=== PATIENT | male | born 1940 | race Caucasian/White ===

== ENCOUNTER 2016-08-01 08:05 | Day surgery (SDC) | payer OTHER ==
[~2016-08-01 08:05] MED LIST: Metoclopramide 10 MG/2 ML SDV IV PRN; Sodium Chloride 0.9% 1,000 ML IV SCH; Sodium Chloride 0.9% 10 ML Syringe FLUSH PRN
[2016-08-01] MEDS ORDERED: Propofol 200 MG/20 ML SDV ONE (10:00)
[2016-08-01 12:40] VITALS: BP 144/61
--- NOTE | 2016-08-01 19:04 | OR ---
DATE OF OPERATION: PREOPERATIVE DIAGNOSIS: Screening colonoscopy. POSTOPERATIVE DIAGNOSIS: Normal colonoscopy. OPERATION: Screening colonoscopy. COMPLICATIONS: None. DRAINS: None. SPECIMENS: None. ESTIMATED BLOOD LOSS: Zero. ANESTHESIA: General propofol anesthesia. INDICATION: Mr. King is a 76-year-old gentleman here for a screening colonoscopy. His previous was 10 years ago. He has no family history. The above-mentioned procedure was explained. The risks, benefits, complications were explained. The patient understood and agreed and was brought to the operating room. DESCRIPTION OF PROCEDURE: The patient was brought to the operating room, placed in a left lateral decubitus position on the operating room table. Satisfactory general propofol anesthesia was administered. We began by performing a rectal examination, which was within normal limits. We then placed the endoscope by finger introduction into the rectum and subsequently advanced this to the level of the cecum. I was able identify the cecum, but I could not enter into the cecum due to significant tortuosity and looping at about the sigmoid. Multiple maneuvers were tried including placing the patient on his back, left side down, right side down, and counter pressure. The ileocecal valve was identified. The survey of the cecum could not be seen; however, the cecal strap was identified. We then evaluated the colon on withdrawal this revealed no significant abnormalities. The retroflexion was performed, which revealed no significant findings either. The colon was decompressed and the scope withdrawn. I recommend CT scan to evaluate the right lower quadrant pain as well as the remainder of the cecum. This was explained to the patient. The patient was awoken in the OR and taken to the PACU for recovery. There were no complications. Instrument count was correct. SANGEETA /[id number]
== END 2016-08-01 12:41 | disposition home or self-care (01) ==
LOC: LB.SDS 08:05
PROVIDERS: ATTEND Surgery
DX: Z12.11 Encounter for screening for malignant neoplasm of colon (principal); Z79.899 Other long term (current) drug therapy
CPT/HCPCS: 45378; J2704; J7040

== ENCOUNTER 2019-01-04 09:35 | Emergency (ER) | payer OTHER, MEDICARE ==
[2019-01-04] MEDS ORDERED: Erythromycin Base 0.5% Ophth Oint 3.5 GM Tube ONE (09:45)
[2019-01-04 09:53] VITALS: BP 177/62; PULSE 61
[2019-01-04] MEDS ORDERED: Gentamicin 0.3% Ophth Soln 5 ML Bottle ONE (09:57)
--- NOTE | 2019-01-04 10:19 | EDM.PDOC ---
ED HPI GENERAL MEDICAL PROBLEM - General Chief Complaint: ENT Problem Stated Complaint: FB IN EYE Time Seen by Provider: 01/04/19 09:45 Source of Information: Reports: Patient, Family History Limitations: Reports: No Limitations - History of Present Illness INITIAL COMMENTS - FREE TEXT/NARRATIVE: This patient presents to the ED with a foreign body in his eye. He believes that he has a wood chip/sliver there as he was cutting wood last evening. He felt something go in his eye and then thought it was out. When he woke this morning, he felt that something was in his left eye. He flushed it and tried eye drops and believes there is still something under his left eyelid. He denies other concerns or complaints. 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 below) (eye drops, flushed with water) left eye Pain Score (Numeric/FACES): 3 - Related Data Allergies Allergy/AdvReac Type Severity Reaction Status Date / Time No Known Allergies Allergy Verified 01/04/19 09:54 Home Meds: Home Meds Aspirin [Tonya Chewable] 81 mg PO DAILY 03/04/13 [History] Simvastatin [Zocor] 40 mg PO BEDTIME 03/04/13 [History] Vit D3/Folic Acid/B2/B6/B12 [Folgard Tablet] 1 cap PO DAILY 03/04/13 [History] Past Medical History Gastrointestinal History: Reports: Other (See Below) Other Gastrointestinal History: R GROIN HERNIA REPAIR 2014 Social & Family History - Family History Family Medical History: Noncontributory - Caffeine Use Caffeine Use: Reports: Coffee Caffeine Use Comment: 1-2 CUPS A DAY ED ROS ENT - Review of Systems Review Of Systems: See Below Constitutional: Reports: No Symptoms HEENT: Reports: Eye Pain Respiratory: Reports: No Symptoms Cardiovascular: Reports: No Symptoms Endocrine: Reports: No Symptoms GI/Abdominal: Reports: No Symptoms Musculoskeletal: Reports: No Symptoms Skin: Reports: No Symptoms Neurological: Reports: No Symptoms ED EXAM, ENT - Physical Exam Exam: See Below Exam Limited By: No Limitations General Appearance: Alert, WD/WN, No Apparent Distress Eye Exam: Left Eye: Conjunctival Injection (erythematous, injected.), Corneal Abrasion (small abrasion noted via fluorscein exam at 4:00 position), Foreign Body (No specific item located although patient states the FB sensation is gone) , Bilateral Eye: EOMI, PERRL Ears: Normal External Exam Nose: Normal Inspection Head: Atraumatic, Normocephalic Neck: Normal Inspection, Full Range of Motion Respiratory/Chest: No Respiratory Distress Neurological: Alert, Oriented Skin: Warm, Dry Course - Vital Signs Last Recorded V/S: Last Vital Signs Temp 36.4 C 01/04/19 09:47 Pulse 61 01/04/19 09:47 Resp 16 01/04/19 09:47 BP 177/62 H 01/04/19 09:47 Pulse Ox 98 01/04/19 09:47 - Orders/Labs/Meds Meds: Medications Discontinued Medications Generic Name Dose Route Start Last Admin Trade Name Freq PRN Reason Stop Dose Admin Gentamicin Sulfate Confirm 01/04/19 09:57 Garamycin 0.3% Ophth Soln Administered 01/04/19 09:58 Dose 5 ml .ROUTE [facility] - Re-Assessments/Exams Free Text/Narrative Re-Assessment/Exam: 01/04/19 10:19 This patient presents for evaluation of a tender eye as detailed above. A broad differential diagnosis was considered including bacterial conjunctivitis, viral conjunctivitis, foreign body, corneal abrasion, chemical vs allergic conjunctivitis, corneal ulcer, HSV, herpes zoster opthalmicus, endopthalmitis, orbital cellulitis, etc. A Wood's lamp exam with fluorescein shows uptake consistent with a corneal abrasion. While no specific foreign body was located, the patient states he no longer has the sensation of a foreign body. Will start antibiotic eye ointment and have close follow-up of eye physician (1-2 days). No red flag symptoms to suggest any of the other above worrisome etiologies. No dendrite or ulcer seen on exam. Tetanus up to date. Departure - Departure Time of Disposition: 10:10 Disposition: Home, Self-Care 01 Clinical Impression: Foreign body, Corneal abrasion - Discharge Information *PRESCRIPTION DRUG MONITORING PROGRAM REVIEWED*: No Instructions: Erythromycin topical ointment Referrals: PCP,Unknown [Primary Care Provider] - Forms: ED Department Discharge Additional Instructions: Make sure to use the antibiotics twice a day and keep your fingers out of the eye. If the eye is not any better in the next 24 hour please return [facility] [phone] Have a great day!
== END 2019-01-04 10:05 | disposition home or self-care (01) ==
LOC: LB.ED 09:35
DX: S05.02XA Injury of conjunctiva and corneal abrasion without foreign body, left eye, initial encounter (principal); X58.XXXA Exposure to other specified factors, initial encounter
CPT/HCPCS: 99283; A9270

== ENCOUNTER 2021-04-10 16:34 | Emergency (ER) | payer MEDICARE, OTHER ==
[2021-04-10] MEDS: Ondansetron 4 MG Tab.DIS PO ONE (17:00)
[2021-04-10 18:02] VITALS: BP 138/72; PULSE 60
--- NOTE | 2021-04-10 19:08 | EDM.PDOC ---
ED HPI GENERAL MEDICAL PROBLEM - General Chief Complaint: Neuro Symptoms/Deficits Stated Complaint: STROKE SX Time Seen by Provider: 04/10/21 16:40 - History of Present Illness INITIAL COMMENTS - FREE TEXT/NARRATIVE: Pt is here with his with C/O passing out at the supper table tonite. He was cutting a piece of chicken when he slumped over the table making funny noises his tells me. She thought he maybe choked on some food so she started the heimlich maneuver without any results. He soon after came to and said he was very warm and nauseated. He stepped outside and vomited twice, after which his brought him in. He says he doesn't remember any of it. He was going to eat and remembers cutting his chicken, and the next thing he knows his is shaking him and asking if he is ok. He has no pain, SOB, or chest tightness. He feels a little foggy now. He has no Hx of heart issues, but does have fm hx of heart attacks. - Related Data Allergies Allergy/AdvReac Type Severity Reaction Status Date / Time No Known Allergies Allergy Verified 01/04/19 09:54 Home Meds: Home Meds Aspirin [Tonya Chewable] 81 mg PO DAILY 03/04/13 [History] Simvastatin [Zocor] 40 mg PO BEDTIME 03/04/13 [History] Vit D3/Folic Acid/B2/B6/B12 [Folgard Tablet] 1 cap PO DAILY 03/04/13 [History] Past Medical History Cardiovascular History: Reports: High Cholesterol Gastrointestinal History: Reports: Other (See Below) Other Gastrointestinal History: R GROIN HERNIA REPAIR 2014 Social & Family History - Family History Family Medical History: No Pertinent Family History - Caffeine Use Caffeine Use: Reports: Coffee Caffeine Use Comment: 1-2 CUPS A DAY - Recreational Drug Use Recreational Drug Use: No ED ROS GENERAL - Review of Systems Review Of Systems: Comprehensive ROS is negative, except as noted in HPI. Neurological: Reports: Syncope, Other (and feels foggy.) ED EXAM, NEURO - Physical Exam Exam: See Below Eye Exam: Bilateral Eye: EOMI, PERRL Neck: Other (No carotid bruits noted.) #1 Interpretation EKG Date: 04/10/21 Time: 19:30 Rhythm: NSR (NSR with no ST elevation or depression.) Course - Vital Signs Last Recorded V/S: Last Vital Signs Temp 98 F 04/10/21 18:01 Pulse 60 04/10/21 18:01 Resp 18 04/10/21 18:01 BP 138/72 04/10/21 18:01 Pulse Ox 97 04/10/21 18:01 - Orders/Labs/Meds Orders: Active Orders 24 hr Category Date Time Status Head wo Cont [CT] Stat Exams 04/10/21 17:13 Ordered Labs: Laboratory Tests 04/10/21 04/10/21 04/10/21 Range/Units 16:59 17:12 17:12 WBC 7.1 (4.0-11.0) K/uL RBC 5.12 (4.50-6.50) M/uL Hgb 14.9 (13.0-18.0) g/dL Hct 43.3 (40.0-54.0) % MCV 85 (76-96) fL MCH 29.1 (27.0-32.0) pg MCHC 34.4 (31.0-35.0) g/dL RDW 13.2 (11.0-16.0) % Plt Count 174 (150-400) K/uL MPV 9.3 (6.0-10.0) fL Neut % (Auto) 52.2 (45.0-70.0) % Lymph % (Auto) 30.4 (20.0-40.0) % [place] % (Auto) 11.5 H (3.0-10.0) % Eos % (Auto) 5.2 H (1.0-5.0) % Baso % (Auto) 0.7 H (0.0-0.5) % Neut # (Auto) 3.71 (2.00-7.50) K/uL Lymph # (Auto) 2.16 (1.50-4.00) K/uL [place] # (Auto) 0.82 H (0.20-0.80) K/uL Eos # (Auto) 0.37 (0.04-0.40) K/uL Baso # (Auto) 0.05 (0.02-0.10) K/uL Sodium 142 (136-145) mmol/L Potassium 3.4 L D (3.5-5.1) mmol/L Chloride 108 H (98-107) mmol/L Carbon Dioxide 24.6 (21.0-32.0) mmol/L Anion Gap 12.8 (5.0-15.0) mmol/L BUN 23 (8-26) mg/dL Creatinine 1.26 (0.70-1.30) mg/dL Est Cr Clr Drug Dosing TNP Estimated GFR (MDRD) 55 L (>60) MLS/MIN BUN/Creatinine Ratio 18.3 (6-25) Glucose 99 (74-100) mg/dL POC Glucose 95 (74-110) mg/dL Calcium 8.5 (8.5-10.1) mg/dL Total Bilirubin 0.3 (0.0-1.0) mg/dL AST 16 (15-37) U/L ALT 24 (12-78) U/L Alkaline Phosphatase 72 (46-116) U/L Troponin I (0.000-0.060) ng/mL Total Protein 6.6 (6.4-8.2) g/dL Albumin 3.5 (3.4-5.0) g/dL Globulin 3.1 (2.2-4.2) g/dL Albumin/Globulin Ratio 1.1 (0.8-2.0) 04/10/21 Range/Units 17:13 WBC (4.0-11.0) K/uL RBC (4.50-6.50) M/uL Hgb (13.0-18.0) g/dL Hct (40.0-54.0) % MCV (76-96) fL MCH (27.0-32.0) pg MCHC (31.0-35.0) g/dL RDW (11.0-16.0) % Plt Count (150-400) K/uL MPV (6.0-10.0) fL Neut % (Auto) (45.0-70.0) % Lymph % (Auto) (20.0-40.0) % [place] % (Auto) (3.0-10.0) % Eos % (Auto) (1.0-5.0) % Baso % (Auto) (0.0-0.5) % Neut # (Auto) (2.00-7.50) K/uL Lymph # (Auto) (1.50-4.00) K/uL [place] # (Auto) (0.20-0.80) K/uL Eos # (Auto) (0.04-0.40) K/uL Baso # (Auto) (0.02-0.10) K/uL Sodium (136-145) mmol/L Potassium (3.5-5.1) mmol/L Chloride (98-107) mmol/L Carbon Dioxide (21.0-32.0) mmol/L Anion Gap (5.0-15.0) mmol/L BUN (8-26) mg/dL Creatinine (0.70-1.30) mg/dL Est Cr Clr Drug Dosing Estimated GFR (MDRD) (>60) MLS/MIN BUN/Creatinine Ratio (6-25) Glucose (74-100) mg/dL POC Glucose (74-110) mg/dL Calcium (8.5-10.1) mg/dL Total Bilirubin (0.0-1.0) mg/dL AST (15-37) U/L ALT (12-78) U/L Alkaline Phosphatase (46-116) U/L Troponin I < 0.017 (0.000-0.060) ng/mL Total Protein (6.4-8.2) g/dL Albumin (3.4-5.0) g/dL Globulin (2.2-4.2) g/dL Albumin/Globulin Ratio (0.8-2.0) Meds: Medications Discontinued Medications Generic Name Dose Route Start Last Admin Trade Name Freq PRN Reason Stop Dose Admin Ondansetron HCl 4 mg 04/10/21 17:12 04/10/21 17:00 Ondansetron 4 Mg Tab.Dis PO 04/10/21 17:13 4 mg ONETIME ONE Administration - Re-Assessments/Exams Free Text/Narrative Re-Assessment/Exam: 04/10/21 19:09 Labs are nml. Head CT without contrast report shows no acute changes. Pt's symptoms of fogginess have resolved by now. He will be discharged home. He is to be monitored by his - activity as tolerated. He is to follow up for a Doppler [place] of the carotid arteries. Departure - Departure Time of Disposition: 18:35 Disposition: Home, Self-Care 01 Condition: Good Clinical Impression: Syncope Qualifiers: Syncope type: unspecified Qualified Code(s): R55 - Syncope and collapse - Discharge Information *PRESCRIPTION DRUG MONITORING PROGRAM REVIEWED*: Yes *COPY OF PRESCRIPTION DRUG MONITORING REPORT IN PATIENT CLARISSA: Yes Referrals: PCP,None [Primary Care Provider] - Forms: ED Department Discharge Care Plan Goals: follow up at the [place] [place] [facility] recommended. Sepsis Event Note (ED) - Evaluation Sepsis Screening Result: No Definite Risk - Focused Exam Vital Signs: Vital Signs Temp Pulse Resp BP Pulse Ox 04/10/21 18:01 98 F 60 18 138/72 97 04/10/21 17:29 97 F 77 18 167/69 H 97 - My Orders Last 24 Hours: My Active Orders 04/10/21 17:13 Head wo Cont [CT] Stat - Assessment/Plan Last 24 Hours: My Active Orders 04/10/21 17:13 Head wo Cont [CT] Stat
--- NOTE | 2021-04-11 09:25 | CT ---
Date of Service: 04/10/21 Clinical Data: LOC episode for [address]: Multislice acquisition through the brain without IV contrast was performed. No priors. There is diffuse atrophy. There are periventricular lucencies bilaterally consistent with small vessel ischemic change. No masses or mass effect. No intracranial hemorrhage. No evidence of acute or subacute infarct. There is a rounded low-density lesion in the left maxillary sinus consistent with a retention cyst or polyp. There is fluid in the ethmoid sinuses bilaterally. No osseous abnormalities. IMPRESSION: No acute intracranial abnormalities. [id number] [facility]
== END 2021-04-10 18:36 | disposition home or self-care (01) ==
LOC: LB.ED 16:34
DX: R55 Syncope and collapse (principal); E78.00 Pure hypercholesterolemia, unspecified; Z79.82 Long term (current) use of aspirin; Z79.899 Other long term (current) drug therapy
CPT/HCPCS: 36415; 70450; 80053; 82947; 84484; 85025; 93005; 99284; A9270